=== PATIENT | male | born 1985 | race Two or more races ===

== ENCOUNTER 2023-11-12 10:00 | Emergency (ER) | payer SELFPAY ==
[~2023-11-12] VITALS: Ht 190.5 cm; Wt 80.0 kg
[2023-11-12 12:42] VITALS: BP 123/68; PULSE 78; RESP 16; TEMP 98.3; O2SAT 96
== END 2023-11-12 12:44 | disposition home or self-care (01) ==
LOC: ER 10:01
DX: R07.89 Other chest pain (principal); R11.2 Nausea with vomiting, unspecified
CPT/HCPCS: 99283